=== PATIENT | male | born 1960 | race Caucasian/White ===

== ENCOUNTER 2017-03-09 22:10 | Emergency (ER) | payer OTHER ==
[2017-03-10 01:00] VITALS: BP 133/70
--- NOTE | 2017-03-10 01:05 | ED ---
Lower Extremity - HPI Summary HPI Summary: Patient presents to the ED with CC of right ankle pain posteriorly after injuring it during a soccer game a few hours ago. He states he twisted it and felt a "snap" since that time has not been able to plantarflex the foot. Denies any lateral or medial ankle pain. Denies other symptoms. He is otherwise healthy, has never injured the ankle before. Denies any pain without palpation. Better with rest. Denies knee pain. Pulses +2 bilaterally and cap refill < 2 sec. Takes no medications. - History of Current Complaint Chief Complaint: EDExtremityLower Stated Complaint: RT ANKLE INJURY Time Seen by Provider: 03/09/17 22:54 Hx Obtained From: Patient Onset of Pain: Immediate Onset/Duration: Hours Severity Initially: Mild Severity Currently: Mild Pain Intensity: 4 Pain Scale Used: 0-10 Numeric Timing: Constant Location: Is Discrete @ - right posterior foot Character Of Pain: Aching Aggravating Factor(s): Standing, Ambulation Alleviating Factor(s): Rest Able to Bear Weight: No - Risk Factors Gout Risk Factors: Negative DVT Risk Factors: Negative Septic Arthritis Risk Factor: Negative - Allergies/Home Medications Allergies/Adverse Reactions: Allergies Allergy/AdvReac Type Severity Reaction Status Date / Time Vancomycin Allergy Unknown Verified 03/09/17 22:20 Reaction Details PMH/Surg Hx/FS Hx/Imm Hx Previously Healthy: Yes Cardiovascular History: Denies: Other Cardiovascular Problems/Disorders Respiratory History: Denies: Other Respiratory Problems/Disorders GI History: Denies: Other GI Disorders Sensory History: Denies: Hx Contacts or Glasses, Hx Hearing Aid Opthamlomology History: Denies: Hx Contacts or Glasses Neurological History: Denies: Other Neuro Impairments/Disorders - Surgical History Surgery Procedure, Year, and Place: SUBACOUS CYST. WISDOM TEETH Hx Anesthesia Reactions: No - Immunization History Hx Pertussis Vaccination: No Immunizations Up to Date: Unable to Obtain/Confirm Infectious Disease History: No Infectious Disease History: Denies: Traveled Outside the [place] in Last 30 Days - Social History Occupation: Employed Full-time Lives: With Family Alcohol Use: Daily Alcohol Amount: 2 DAILY Hx Substance Use: No Substance Use Type: Reports: None Hx Tobacco Use: No Smoking Status (MU): Never Smoked Tobacco Have You Smoked in the Last Year: No Review of Systems Constitutional: Negative Negative: Fever, Chills, Fatigue Eyes: Negative Cardiovascular: Negative Respiratory: Negative Positive: no symptoms reported, see HPI Positive: Myalgia Skin: Negative Neurological: Negative All Other Systems Reviewed And Are Negative: Yes Physical Exam Triage Information Reviewed: Yes Vital Signs On Initial Exam: Initial Vitals Temp Pulse Resp BP Pulse Ox 98.5 F 92 16 132/86 99 03/09/17 22:15 03/09/17 22:15 03/09/17 22:15 03/09/17 22:15 03/09/17 22:15 Vital Signs Reviewed: Yes Appearance: Positive: Well-Appearing, Well-Nourished Skin: Positive: Warm, Skin Color Reflects Adequate Perfusion Head/Face: Positive: Normal Head/Face Inspection Eyes: Positive: EOMI, VALERIE, Conjunctiva Clear Neck: Positive: Supple, Nontender, No Lymphadenopathy Respiratory/Lung Sounds: Positive: Clear to Auscultation, Breath Sounds Present Cardiovascular: Positive: RRR, Pulses are Symmetrical in both Upper and Lower Extremities Musculoskeletal: Positive: Limited @ - plantarflexion Neurological: Positive: Speech Normal Psychiatric: Positive: Normal Diagnostics - Vital Signs Vital Signs Temp Pulse Resp BP Pulse Ox 03/09/17 22:15 98.5 F 92 16 132/86 99 - Laboratory Lab Statement: Any lab studies that have been ordered have been reviewed, and results considered in the medical decision making process. Lower Extremity Course/Dx - Course Course Of Treatment: Noticeable defect in Achilles tendon. Achilles tendon without bruising. Ankle without swelling or foot misalignment. Pulses intact and equal bilaterally. Normal cap refill. Comparison to unaffected side shows R Achilles tendon with noticeable concave defect approximately 3cm proximal to the insertion of the tendon. Absence of plantar flexion while squeezing gastrocnemius shows positive Morrissey test. No crepitus with passive motion. No US or XRAY necessary. Clinical diagnoses were made based on the findings in the physical exam above. Positive Morrissey, positive Matles test and with noticeable defect proximal to the insertion of the tendon. No bruising or crepitus. Patient unable to bear weight. Posterior walking splint with sugar tong (plaster) placed for immobilization with the ankle in some plantar flexion. Crutches given with patient tolerating well. Ibuprofen encouraged for swelling. Encouraged non-weight bearing until follow up with orthopedic physican in 3-5 days. He is given referral to Dr. Elder. - Diagnoses Provider Diagnoses: Achilles tendon rupture Discharge - Discharge Plan Condition: Stable Disposition: HOME Patient Education Materials: Achilles Tendon Rupture (ED) Referrals: Zeferino Elder MD [Medical Doctor] - Gopi Muniz MD [Primary Care Provider] - Additional Instructions: Crutches for ambulation given. Ibuprofen 600mg three times daily with meals for pain. Follow up with orthopedic physician in 3-5 days. If numbness, tingling, decreased sensation, increased pain, temperature changes or pallor noted in toes, come back to ER immediately. Protect the area. Do not bear weight, pull or push with foot until follow up with orthopedics. Rest the involved area. Compression: Continue with posterior splint until follow up with ortho. Do not get wet. Elevate: Try to elevate the injured area above the heart whenever possible.
--- NOTE | 2017-03-10 07:34 | RAD ---
INDICATION: Right ankle injury. TECHNIQUE: 3 views of the right ankle were obtained. FINDINGS: Soft tissue swelling is noted along the anterolateral aspect of the ankle. No fracture is seen. Joint spaces appear maintained. IMPRESSION: SOFT TISSUE SWELLING, NO FRACTURE IS SEEN.
== END 2017-03-10 00:58 | disposition home or self-care (01) ==
LOC: ED 22:10
DX: S86.011A Strain of right Achilles tendon, initial encounter (principal); X50.9XXA Other and unspecified overexertion or strenuous movements or postures, initial encounter; Y93.66 Activity, soccer; Y92.9 Unspecified place or not applicable
CPT/HCPCS: 99282

== ENCOUNTER 2017-04-22 15:36 | Emergency (ER) | payer OTHER ==
[2017-04-22 16:20] LABS: ABS Basophils 0.1 10^3/ul (0-0.2); ABS Eosinophils 0.2 10^3/ul (0-0.6); ABS Monocytes 0.7 10^3/ul (0-0.8); ABS Neutrophils 4.7 10^3/ul (1.5-7.7); ABS Nucleated RBC 0 10^3/ul; Eosinophil % 2.1 % (0-6); Hematocrit 42 % (42-52); Hemoglobin 13.9 g/dl (14.0-18.0); Lymphocyte % 26.1 % (25-47); Mean Corpuscular HGB Conc 33 g/dl (31-36); Mean Corpuscular Hemoglobin 30 pg (27-31); Mean Corpuscular Volume 89 fL (80-94); Mean Platelet Volume 8 um3 (7.4-10.4); Nucleated Red Blood Cells % 0; Platelet Count 188 10^3/ul (150-450); Red Blood Count 4.72 10^6/ul (4.0-5.4); Red Cell Distribution Width 13 % (10.5-15); White Blood Count 7.5 10^3/ul (3.5-10.8)
--- NOTE | 2017-04-22 16:21 | ED ---
Lower Extremity - HPI Summary HPI Summary: 56-year-old male presents with left calf swelling for the past 3 weeks. He states that 6 weeks ago he tore his ACL and has been immobilized in a boot since. He states he has had swelling since that thought was normal but seemed to get worst three weeks ago. He states today he had ultrasound today that showed that he had a DVT in popliteal region. He denies any chest pain or shortness of breath. He states he does have family history of being on blood thinners though he believes his father is due to A. fib and his grandfather may be due to previous heart attacks. He denies any fevers. He states he only had ain for like an hour 3 weeks ago. He has no medical conditions. - History of Current Complaint Chief Complaint: EDExtremityUpper Stated Complaint: DVT+ Time Seen by Provider: 04/22/17 15:46 Pain Intensity: 0 - Allergies/Home Medications Allergies/Adverse Reactions: Allergies Allergy/AdvReac Type Severity Reaction Status Date / Time MS Vancomycin [Vancomycin] Allergy Unknown Verified 03/09/17 22:20 Reaction Details PMH/Surg Hx/FS Hx/Imm Hx Endocrine/Hematology History: Denies: Hx Anticoagulant Therapy Cardiovascular History: Denies: Other Cardiovascular Problems/Disorders Respiratory History: Denies: Other Respiratory Problems/Disorders GI History: Denies: Other GI Disorders Sensory History: Denies: Hx Contacts or Glasses, Hx Hearing Aid Opthamlomology History: Denies: Hx Contacts or Glasses Neurological History: Denies: Other Neuro Impairments/Disorders - Surgical History Surgery Procedure, Year, and Place: SUBACOUS CYST. WISDOM TEETH Hx Anesthesia Reactions: No Infectious Disease History: No Infectious Disease History: Denies: Traveled Outside the [place] in Last 30 Days - Family History Known Family History: Positive: Cardiac Disease - Social History Alcohol Use: Daily Alcohol Amount: 2 DAILY Hx Substance Use: No Substance Use Type: Reports: None Hx Tobacco Use: No Smoking Status (MU): Never Smoked Tobacco Have You Smoked in the Last Year: No Review of Systems Negative: Fever Negative: Chest Pain Negative: Shortness Of Breath Positive: Edema - right leg All Other Systems Reviewed And Are Negative: Yes Physical Exam Triage Information Reviewed: Yes Vital Signs On Initial Exam: Initial Vitals Temp Pulse Resp BP Pulse Ox 98.5 F 59 14 129/76 99 04/22/17 15:42 04/22/17 15:42 04/22/17 15:42 04/22/17 15:42 04/22/17 15:42 Vital Signs Reviewed: Yes Appearance: Positive: Well-Appearing Skin: Positive: Warm, Dry Head/Face: Positive: Normal Head/Face Inspection Eyes: Positive: Normal, Conjunctiva Clear Respiratory/Lung Sounds: Positive: Clear to Auscultation, Breath Sounds Present Cardiovascular: Positive: Normal, RRR Musculoskeletal: Positive: Limited @ - right leg, Edema Right - right lower leg , Other - good pulses, capillary refill<2 secs, tenderness to right calf Neurological: Positive: Normal Psychiatric: Positive: Normal Diagnostics - Vital Signs Vital Signs Temp Pulse Resp BP Pulse Ox 04/22/17 15:42 98.5 F 59 14 129/76 99 - Laboratory Result Diagrams: 04/22/17 16:05 04/22/17 16:05 Lab Statement: Any lab studies that have been ordered have been reviewed, and results considered in the medical decision making process. Lower Extremity Course/Dx - Course Course Of Treatment: 56-year-old male presents with left calf swelling for the past 3 weeks. He states that 6 weeks ago he tore his ACL and has been immobilized in a boot since. He states he has had swelling since that thought was normal but seemed to get worst three weeks ago. He states today he had ultrasound today that showed that he had a DVT in popliteal region. He denies any chest pain or shortness of breath. He states he does have family history of being on blood thinners though he believes his father is due to A. fib and his grandfather may be due to previous heart attacks. He denies any fevers. He states he only had ain for like an hour 3 weeks ago. He has no medical conditions. on exam neurovascular intact. edema noted to right leg. labs wnl. discussed options for blood thinners and decided on xarleto. will have follow up with primary for continued care. patient understand and agrees with plan. - Diagnoses Differential Diagnosis/HQI/PQRI: Positive: DVT, Sprain, Strain Provider Diagnoses: Right leg DVT Discharge - Discharge Plan Condition: Good Disposition: HOME Prescriptions: Rivaroxaban TAB(*) [Xarelto 15 mg(*)] 15 mg PO BID #41 tab Patient Education Materials: Rivaroxaban (By mouth), Deep Vein Thrombosis (ED) Referrals: Gopi Muniz MD [Primary Care Provider] - Additional Instructions: Take xarelto twice a day for 21 days then once a day after that Take with food Avoid Aspirin or ibuprofen, use Tylenol for pain Follow up with primary care physician for continued care Return to ED if develop any chest pain or SOB any new or worsening symptoms
[2017-04-22 16:30] LABS: INR 0.98 (0.77-1.02)
[2017-04-22 16:37] LABS: EGFR Non-African American 69.7 (>60)
[2017-04-22] MEDS ORDERED: Rivaroxaban TAB(*) 15 MG PO ONE (17:02)
[2017-04-22 17:38] VITALS: BP 131/74
== END 2017-04-22 17:36 | disposition home or self-care (01) ==
LOC: ED 15:36
DX: I82.402 Acute embolism and thrombosis of unspecified deep veins of left lower extremity (principal); I82.439 Acute embolism and thrombosis of unspecified popliteal vein; Z88.3 Allergy status to other anti-infective agents
CPT/HCPCS: 36415; 80053; 85025; 85610; 85730; 99282

== ENCOUNTER 2017-06-09 10:11 | Observation (INO) | payer OTHER ==
[~2017-06-09 10:11] MED LIST: Acetaminophen IV 1GM/100ML * 1,000 MG/100 ML VIAL IVPB ONE; Buffered Lidocaine 0.9% SYRIN* 5 ML/SYR SYRINGE INTRADERM ONE; Dexamethasone IV* 4 MG/ML 1 ML (4 MG) IV SLOW PU ONE; Metoclopramide IV* 5 MG/ML 2 ML VIAL IV SLOW PU ONE
[2017-06-09] MEDS ORDERED: Buffered Lidocaine 0.9% SYRIN* 5 ML/SYR SYRINGE ONE (10:19)
[2017-06-09] MEDS ORDERED: ceFAZolin 2 GM PREMIX (*) 2 GM/50 ML BAG IVPB ONE (10:19)
[2017-06-09] MEDS ORDERED: Metoclopramide IV* 5 MG/ML 2 ML VIAL ONE (10:19)
[2017-06-09] MEDS ORDERED: Dexamethasone IV* 4 MG/ML 1 ML (4 MG) ONE (10:19)
[2017-06-09] MEDS ORDERED: Acetaminophen IV 1GM/100ML * 100 ML ONE (10:21)
[2017-06-09] MEDS ORDERED: Rocuronium* 10 MG/ML VIAL ONE (10:42)
[2017-06-09] MEDS ORDERED: Propofol* 10 MG/ML 20 ML BTL IV PUSH ONE (10:42)
[2017-06-09] MEDS ORDERED: fentaNYL* 50 MCG/ML 2 ML VIAL (100 MCG VIAL) ONE ×3 (10:42→13:11)
[2017-06-09] MEDS ORDERED: Midazolam* 1 MG/ML 2 ML VIAL (2 MG) ONE (10:42)
[2017-06-09] MEDS ORDERED: Lidocaine 2% PF * 5 ML VIAL ONE (10:42)
[2017-06-09] MEDS ORDERED: Bupivacaine 0.25% SDV* 30 ML ONE (10:56)
[2017-06-09] MEDS ORDERED: diPHENhydraMINE IV* 50 MG/ML 1 ml VIAL (BENADRYL) IV PRN ×3 (11:45→15:13)
[2017-06-09] MEDS ORDERED: Naloxone* 0.4 MG/ML 1 ML VIAL IV PRN (11:45)
[2017-06-09] MEDS ORDERED: Neostigmine Methylsulfate* 1 MG/ML 10 ML VIAL (1 mg/ml) ONE (11:52)
[2017-06-09] MEDS ORDERED: Glycopyrrolate IV* 0.2 MG/ML 1 ML VIAL ONE (11:52)
[2017-06-09] MEDS ORDERED: Ondansetron INJ* 2 MG/ML VIAL ONE (11:52)
[2017-06-09] MEDS ORDERED: Ketorolac INJ* 30 MG/ML 1 ML VIAL ONE ×2 (11:52→17:13)
[2017-06-09] MEDS ORDERED: HYDROmorphone INJ* 2 MG/ML CARPUJECT SYRINGE ONE (12:54)
[2017-06-09] MEDS: fentaNYL* 50 MCG/ML 2 ML VIAL (100 MCG VIAL) IV PRN ×3 (12:54→13:13)
[2017-06-09] MEDS ORDERED: oxyCODONE/Acetamin 5/325 MG* TAB PO PRN (13:06)
[2017-06-09] MEDS ORDERED: Ondansetron INJ* 2 MG/ML VIAL IV PRN (13:06)
[2017-06-09] MEDS ORDERED: Morphine VIAL* 4 MG/ML VIAL (1 ml vial) IV PRN (13:06)
[2017-06-09] MEDS ORDERED: traZODone TAB* 50 MG TAB PO PRN (13:06)
[2017-06-09] MEDS ORDERED: oxyCODONE TAB* 5 MG TAB ONE ×2 (13:11→14:18)
[2017-06-09] MEDS: oxyCODONE TAB* 5 MG TAB PO PRN ×2 (13:16→14:19)
[2017-06-09] MEDS: HYDROmorphone INJ* 1 MG/ML CARPUJECT SYRINGE IV PRN ×2 (13:27→13:40)
--- NOTE | 2017-06-09 17:06 | OP ---
Operative Report - Blank - Operative Report Date of Operation: 06/09/17 Note: PATIENT: Rojas Hawk DATE OF : 1960 DATE OF SURGERY: 06/09/2017 SURGEON: Tony Peña MD RESPIRATORY CARE PROGRAM DIRECTOR: nikolay Schultz assistance was necessary for positioning, retraction, help with instrumentation, and closure. ANESTHESIOLOGIST: Dr. Bowles PREOPERATIVE DIAGNOSIS: Right Achilles tendon re-rupture POSTOPERATIVE DIAGNOSIS: Right Achilles tendon re-rupture OPERATION: Right Achilles tendon repair and placement of a subatmospheric pressure wound dressing ANESTHESIA: GETA IMPLANTS: none TOURNIQUET TIME: none SPECIMENS: none ESTIMATED BLOOD LOSS: minimal COMPLICATIONS: none STATUS: Stable from the operating room to the recovery room and then to the hospital floor for observation overnight. INDICATIONS FOR PROCEDURE: Wm had a right Achilles tendon rupture, treated nonoperatively. 3 months into treatment, he sustained a rerupture. He was diagnosed with DVTs in the right lower extremity about 7 weeks ago. He was cleared by hematology preoperatively. Both operative and non operative treatment alternatives were reviewed. Further, the nature and risks of surgery were reviewed in careful detail in the office as well as in the preoperative holding area. Our discussions regarding the risks of surgery included, but were not limited to, infection, wound problems, nerve injury, neuroma, RSD, persistent symptoms, worsening blood clot or pulmonary embolism, re-rupture or failure to heal, failure of the surgery, and even the remote chance of catastrophic complication , including loss of limb or . DESCRIPTION OF PROCEDURE: The patient was seen in the preoperative holding unit and informed written consent was obtained. The appropriate extremity was marked. The patient was then brought to the operating room and carefully positioned on the operating room table in the supine position. Anesthesia was induced. All bony prominences were padded with great care. A well-padded thigh tourniquet was placed. I evaluated the resting tension of his Achilles on the nonoperative side. A chlorhexidine based pre-scrub was performed followed by a chloraprep prep and drape in standard sterile fashion. A surgical safety pause was then conducted in which we confirmed the appropriate patient, extremity, planned procedure, availability of equipment, indication and administration of prophylactic antibiotics, and DVT prophylaxis in the form of a compression boot on the non- surgical extremity. I began by utilizing a longitudinal incision overlying the posterior aspect of the Achilles, roughly 12cm in length. I then carefully dissected down to the peritenon layer and preserved this throughout the procedure. The peritenon layer was incised, exposing the Achilles tendon. There was a complete rupture of the Achilles tendon. The adhesions of the Achilles tendon were freed circumferentially to mobilize both the proximal and distal Achilles tendon stumps. The proximal Achilles stump at the rupture site was sutured with a #2 Ethibond suture, passed in a non-strangulating modified Krakw pattern. The distal Achilles stump was then sutured with #2 Ethibond in a similar Krakw pattern. I was able to bring the 2 ends of the tendon together without undue tension. Therefore, I decided not to perform a lengthening procedure. The 2 Achilles tendon stumps were sutured together utilizing the free ends of the #2 Ethibond suture from each stump. The knots were buried so that they would not be prominent underneath the skin. The repair was augmented with #1 Vicryl suture. At this point, he had a restored Morrissey test and his resting tension was approximately equal to the nonoperative ankle. The wound was then copiously irrigated. The peritenon layer was closed with 2- 0 Vicryl suture. The wound was again copiously irrigated and then closed meticulously in layers utilizing 3-0 Monocryl for the subdermal layer, and 3-0 nylon for the skin. I placed a [employer] KATHERIN subatmospheric pressure wound dressing over the wound, since he will be restarted on xarelto tomorrow. I then placed a splint with the ankle in resting equinus position. The patient was then awakened from anesthesia and transferred to the recovery room in stable condition. There were no complications. All needle and sponge counts were correct at the end of the case. ATTESTATION: I attest I was present and scrubbed and performed the critical portions of the procedure myself. POSTOPERATIVE PLAN: The patient will remain [id number] for two weeks and follow up next Tuesday for a wound check. I discussed concerning symptoms with them, which would necessitate an earlier evaluation. Xarelto will be restarted tomorrow and we will plan on discharge home tomorrow.
[2017-06-09] MEDS: Ketorolac INJ* 30 MG/ML 1 ML VIAL IV PUSH PRN (17:16)
[2017-06-09] MEDS: ceFAZolin 1 GM in Dextrose (*) 1 GM/50 ML BAG IVPB SCH (20:05)
[2017-06-09] MEDS: Docusate CAP* 100 MG PO SCH (20:06)
[2017-06-10] MEDS: ceFAZolin 1 GM in Dextrose (*) 1 GM/50 ML BAG IVPB SCH ×2 (03:49→11:15)
[2017-06-10] MEDS: oxyCODONE/Acetamin 5/325 MG* TAB PO PRN ×2 (03:50→11:15)
[2017-06-10] MEDS: Docusate CAP* 100 MG PO SCH (08:33)
[2017-06-10] MEDS ORDERED: Rivaroxaban TAB(*) 20 MG TAB PO SCH ×2 (09:00→12:00)
--- NOTE | 2017-06-10 11:00 | PN ---
Progress Note - Progress Note Date of Service: 06/10/17 SOAP: Subjective: 56 y/o male s/p R achillies tendon repair by Dr. Peña. Patient reports feeling well, understands NWB, VSS afebrile overnight. 1st degree heart block seen on EKG this AM- consult to hospitalists placed, asymptomatic. eager for D/C home. Objective: General- Well appearing, NAD AO, resting in bed comfortable MSK- Dressing intact, no drainage noted, toes pink, well perfused, SITLT. no induration above or below dressing. Wound suction intact, working well Vital Signs Temp 98.6 F 06/10/17 11:14 Pulse 67 06/10/17 11:14 Resp 18 06/10/17 13:19 BP 105/64 06/10/17 11:14 Pulse Ox 100 06/10/17 11:14 Intake & Output 06/09/17 06/10/17 06/10/17 18:59 06:59 18:59 Intake Total 1050 1495 140 Output Total 500 1170 Balance 550 325 140 Weight 85.275 kg Intake: IV Fluids 1050 115 55 ANCEF 2 GRAMS 50 LR 1000 115 IVPB 120 85 ABX - CEFAZOLIN 120 55 LR 30 Oral 0 1260 Output: Urine 500 1170 Assessment: Stable 56 y/o male s/p R achillies tendon repair by Dr. Peña. Plan: - NWB- patient has crutches, agrees with Dr. Peña that will keep leg elevated as much as possible - Follow up with Dr. Peña next for dressing change - Call the service with any changes to wound dressing - Continue current pain regimen - DVT prophylaxis- Xarelto, continue due to recent DVT Diphenhydramine HCl (Benadryl Iv*) 25 mg IV Q6H PRN PRN Reason: PRURITIS Docusate Sodium (Colace Cap*) 100 mg PO BID KARMEN Last Admin: 06/10/17 08:33 Dose: 100 mg Ketorolac Tromethamine (Toradol Inj*) 30 mg IV PUSH Q6H PRN PRN Reason: PAIN - MODERATE Last Admin: 06/09/17 17:16 Dose: 30 mg Ondansetron HCl (Zofran Inj*) 4 mg IV Q6H PRN PRN Reason: nausea Oxycodone/Acetaminophen (Percocet 5/325 Tab*) 2 tab PO Q4H PRN PRN Reason: PAIN Last Admin: 06/09/17 18:45 Dose: 2 tab Oxycodone/Acetaminophen (Percocet 5/325 Tab*) 1 tab PO Q4H PRN PRN Reason: PAIN Last Admin: 06/10/17 11:15 Dose: 1 tab Rivaroxaban (Xarelto(*)) [facility] [place] Last Admin: 06/10/17 11:26 Dose: Not Given Trazodone HCl (Desyrel Tab*) 25 mg PO BEDTIME PRN PRN Reason: insomnia
[2017-06-10 11:54] VITALS: BP 105/64
[2017-06-10] MEDS: Ketorolac INJ* 30 MG/ML 1 ML VIAL IV PUSH PRN (14:10)
--- NOTE | 2017-06-12 23:48 | DS ---
DISCHARGE SUMMARY: DATE OF ADMISSION: 06/09/17 DATE OF DISCHARGE: 06/10/17 ATTENDING PHYSICIAN: Dr. Peña.* (DICTATED BY TIMO HARDEN) CHIEF COMPLAINT: 1. Right Achilles tendon rerupture. DISCHARGE DIAGNOSES: Status post right Achilles tendon repair and placement of a subatmospheric wound pressure dressing, 06/09/17. BRIEF HISTORY: Mr. Hawk is a pleasant 56-year-old gentleman who suffered from a right Achilles tendon rupture treated with conservative methods; however, he had a repeat rupture and elected to undergo a right Achilles tendon repair. HOSPITAL COURSE: Mr. Hawk was admitted on 06/09/17 after undergoing a right Achilles tendon repair. He tolerated the procedure well and recovered on the surgical short-stay unit. There were no complications. His vital signs remained stable and his pain was well controlled with p.o. Percocet. He was strictly nonweightbearing on his right lower extremity which he was aware of. He advanced appropriately with physical therapy and occupational therapy. His DVT prophylaxis was managed with Xarelto restarted on POD1, as he has a DVT. On postoperative day #1, he was orthopedically and medically stable to go home with home services. PHYSICAL EXAMINATION: General: Well appearing, in no acute distress. Alert and oriented. Appears stated age. Sponge dressing intact over the right foot with no drainage noted. No induration above or below the dressing. Toe is pink and well perfused. Sensation intact to light touch. Vital Signs: Temperature 98.6, pulse 67, respirations 18, blood pressure 105/64, pulse oxygenation 100% on room air. LABORATORY DATA ON THE DATE OF DISCHARGE: None. DISCHARGE MEDICATIONS: 1. Xarelto 20 mg p.o. q.a.m. 2. Percocet 5/325 one to two tablets every 4 to 6 hours as needed for pain. 3. Colace 100 mg p.o. b.i.d. CONDITION ON DISCHARGE: Stable. DISCHARGE INSTRUCTIONS: Mr. Hawk is a very pleasant 56-year-old gentleman, postop day 1, status post an open Achilles tendon rupture repair. The patient had no questions with regards to the surgery. He is aware that he needs to be strictly nonweightbearing and should keep his foot elevated at all times. He started his Xarelto POD1. He will follow up with Dr. Peña on Tuesday for removal of this subatmospheric wound dressing, but will call us sooner if there is any dysfunction with this. His pain is controlled with p.o. Percocet. He had no other further questions or concerns. He will go to the ER should he develop chest pain or shortness of breath and call us if any abnormalities. TIMO HARDEN [id number]/[facility] #: [id number]
== END 2017-06-10 14:30 | disposition home or self-care (01) ==
LOC: OR 10:11 → SSU 14:40
PROVIDERS: ADMIT Orthopaedic Surgery; ATTEND Orthopaedic Surgery
PROC: 0LQN0ZZ Repair Right Lower Leg Tendon, Open Approach (ICD-10-PCS; principal; 2017-06-09 11:45)
DX: S86.011A Strain of right Achilles tendon, initial encounter (principal); X58.XXXA Exposure to other specified factors, initial encounter; Y92.9 Unspecified place or not applicable; E11.9 Type 2 diabetes mellitus without complications; Z79.01 Long term (current) use of anticoagulants; Z79.899 Other long term (current) drug therapy; Z88.1 Allergy status to other antibiotic agents; Z88.5 Allergy status to narcotic agent
CPT/HCPCS: A9270-GY; G0378; J0690; J1100; J1170; J1200; J1885; J2250; J2270; J2405; J2704; J2710; J2765; J3010

== ENCOUNTER 2018-02-11 11:10 | Emergency (ER) | payer OTHER ==
--- NOTE | 2018-02-11 11:31 | ED ---
Palpitations / Dysrhythmia - HPI Summary HPI Summary: A 57 y/o M presents to ED with irregular and rapid palpitations onset last night approx 1999. At onset, pt arose from being seated after dinner. He rested the rest of the evening, went to bed, and when he awoke today, the sx were still present. At bedside, pt states he feels foggy. Denies lightheadedness, balance issues. He states being healthy otherwise. He had Achilles surgery this year and got a DVT. He was on Xarelto for three months, last taken in July. PCP is Dr. Muniz. Pt and his are renovating their old farm house. - History of Current Complaint Chief Complaint: EDDysrhythmPalp Time Seen by Provider: 02/11/18 11:30 Hx Obtained From: Patient Onset/Duration: Sudden Onset, Lasting Hours - last night, Still Present Timing: Constant Severity Initially: Moderate Severity Currently: Moderate Character: Fast, Irregular Associated Signs & Symptoms: Negative - Allergy/Home Medications Allergies/Adverse Reactions: Allergies Allergy/AdvReac Type Severity Reaction Status Date / Time morphine Allergy Intermediate Rash And Verified 02/11/18 11:16 Itching vancomycin Allergy Intermediate Braydon's Verified 02/11/18 11:16 Syndrome PMH/Surg Hx/FS Hx/Imm Hx Previously Healthy: Yes Endocrine/Hematology History: Denies: Hx Anticoagulant Therapy Cardiovascular History: Reports: Other Cardiovascular Problems/Disorders - DVT RLE onset 06/03/17 Respiratory History: Denies: Other Respiratory Problems/Disorders GI History: Denies: Other GI Disorders Sensory History: Reports: Hx Contacts or Glasses - readers, Hx Hearing Aid - both ears Opthamlomology History: Reports: Hx Contacts or Glasses - readers Neurological History: Denies: Other Neuro Impairments/Disorders - Cancer History Hx Chemotherapy: No - Surgical History Surgery Procedure, Year, and Place: SUBACOUS CYST. WISDOM TEETH. left maxillary antrostomy w/tissue removal 2017 Hx Anesthesia Reactions: No Infectious Disease History: No Infectious Disease History: Denies: Traveled Outside the [place] in Last 30 Days - Family History Known Family History: Positive: Cardiac Disease - Social History Occupation: Works From/At Home Lives: With Family Alcohol Use: None Alcohol Amount: 2 DAILY Hx Substance Use: No Substance Use Type: Reports: None Hx Tobacco Use: No Smoking Status (MU): Never Smoked Tobacco Have You Smoked in the Last Year: No Review of Systems Positive: Palpitations Neurological: Other - neg: lightheadedness, balance impairment All Other Systems Reviewed And Are Negative: Yes Physical Exam - Summary Physical Exam Summary: Appearance: The patient is well-nourished in no acute distress and in no acute pain. Skin: The skin is warm and dry and skin color reflects adequate perfusion. HEENT: The head is normocephalic and atraumatic. The pupils are equal and reactive. The conjunctivae are clear and without drainage. Nares are patent and without drainage. Mouth reveals moist mucous membranes and the throat is without erythema and exudate. The external ears are intact. The ear canals are patent and without drainage. The tympanic membranes are intact. Neck: the neck is supple with full range of motion and non-tender. There are no carotid bruits. There is no neck vein distension. Respiratory: Chest is non-tender. Lungs are clear to auscultation and breath sounds are symmetrical and equal. Cardiovascular: Heart is regular rate and rhythm. There is no murmur or rub auscultated. There is no peripheral edema and pulses are symmetrical and equal. Abdomen: The abdomen is soft and non-tender. There are normal bowel sounds heard in all four quadrants and there is no organomegaly palpated. Musculoskeletal: There is no back tenderness noted. Extremities are non-tender with full range of motion. There is good capillary refill. There is no peripheral edema or calf tenderness elicited. Neurological: Patient is alert and oriented to person, place and time. The patient has symmetrical motor strength in all four extremities. Cranial nerves are grossly intact. Deep tendon reflexes are symmetrical and equal in all four extremities. Psychiatric: The patient has an appropriate affect and does not exhibit any anxiety or depression. Triage Information Reviewed: Yes Vital Signs On Initial Exam: Initial Vitals Temp Pulse Resp BP Pulse Ox 97.3 F 72 14 127/72 100 02/11/18 11:12 02/11/18 11:12 02/11/18 11:12 02/11/18 11:12 02/11/18 11:12 Vital Signs Reviewed: Yes Diagnostics - Vital Signs Vital Signs Temp Pulse Resp BP Pulse Ox 02/11/18 11:12 97.3 F 72 14 127/72 100 - Laboratory Result Diagrams: 02/11/18 12:12 02/11/18 12:12 Lab Statement: Any lab studies that have been ordered have been reviewed, and results considered in the medical decision making process. - Radiology CXR Radiology Interpretation Completed By: Radiologist Summary of Radiographic Findings: IMPRESSION: #. No evidence for acute intrathoracic disease. ED provider has reviewed this report. - EKG 1128 Cardiac Rate: NL - 69 bpm EKG Rhythm: Sinus Rhythm ST Segment: Normal Ectopy: None Summary of EKG Findings: No STEMI Re-Evaluation - Re-Evaluation 1 Re-Evaluation Time: 13:37 Change: Improved Comment: Discussing results with pt. He will ambulation tested. Course/Dx - Course Course Of Treatment: Mr. Hawk presented with a concern for rapid fluttering of his heart rate. It started last evening and he was able to sleep all night but felt that he had it again when he woke up this morning. He was in normal sinus rhythm here and nontoxic in appearance. He was kept on the monitor while labs were obtained which were within normal limits. His EKG and chest x-ray were also unremarkable. I recommended he follow-up with his PCP - Diagnoses Provider Diagnoses: Palpitations Discharge - Sign-Out/Discharge Documenting (check all that apply): Patient Departure - DC - Discharge Plan Condition: Stable Disposition: HOME Patient Education Materials: Heart Palpitations (ED) Referrals: Gopi Muniz MD [Primary Care Provider] - 3 Days Additional Instructions: Please return to the ED if you experience new or worsening symptoms. Follow up with your primary care provider in 2-3 days. - Billing Disposition and Condition Condition: STABLE Disposition: Home - Attestation Statements Document Initiated by Scribe: Yes Documenting Scribe: Obdulio Herrera Provider For Whom Scribe is Documenting (Include Credential): Dr. Carlos Napoles MD Scribe Attestation: I, hubert Cheneyibed for Dr. Carlos Napoles MD on 02/11/18 at 1826. Scribe Documentation Reviewed: Yes Provider Attestation: The documentation as recorded by the Obdulio hernandez accurately reflects the service I personally performed and the decisions made by me, Dr. Carlos Napoles MD Status of Scribe Document: Viewed
[2018-02-11 12:23] LABS: ABS Basophils 0.1 10^3/ul (0-0.2); ABS Eosinophils 0.2 10^3/ul (0-0.6); ABS Lymphocytes 1.7 10^3/ul (1.0-4.8); ABS Monocytes 0.6 10^3/ul (0-0.8); ABS Neutrophils 3.7 10^3/ul (1.5-7.7); ABS Nucleated RBC 0 10^3/ul; Hematocrit 44 % (42-52); Hemoglobin 14.7 g/dl (14.0-18.0); Lymphocyte % 27.2 %; Mean Corpuscular HGB Conc 34 g/dl (31-36); Mean Corpuscular Hemoglobin 30 pg (27-31); Mean Corpuscular Volume 90 fL (80-94); Nucleated Red Blood Cells % 0.2; Platelet Count 164 10^3/ul (150-450); Red Blood Count 4.87 10^6/ul (4.00-5.40); Red Cell Distribution Width 13 % (10.5-15); White Blood Count 6.2 10^3/ul (3.5-10.8)
[2018-02-11 12:41] LABS: Albumin 3.8 g/dL (3.2-5.2); Albumin/Globulin Ratio 1.7 (1-3); BUN/Creatinine Ratio 17.6 (8-20); EGFR Non-African American 70.2 (>60); Globulin 2.2 g/dL (2-4); Potassium 3.9 mmol/L (3.5-5.0); Total Bilirubin 0.7 mg/dL (0.2-1.0)
[2018-02-11 13:02] LABS: TSH (Thyroid Stimulating Horm) 1.51 mcIU/mL (0.34-5.60)
[2018-02-11 14:35] VITALS: BP 108/71
== END 2018-02-11 14:34 | disposition home or self-care (01) ==
LOC: ED 11:10
DX: R00.2 Palpitations (principal); Z88.6 Allergy status to analgesic agent
CPT/HCPCS: 36415; 71046; 80053; 83605; 83735; 84443; 84484; 85025; 85379; 93005; 99283